=== PATIENT | female | born 1995 | race African-American/Black ===

== ENCOUNTER 2016-07-15 18:17 | Emergency (ER) | payer MEDICAID ==
[~2016-07-15] VITALS: Ht 170.2 cm; Wt 118.0 kg
[~2016-07-15 18:17] MED LIST: ERGO50000 PO; IBUP400T20 PO
[2016-07-15 18:29] VITALS: BP 139/71; PULSE 84; RESP 16; TEMP 99.3; O2SAT 100
[2016-07-15] MEDS ORDERED: SODIUM CHLOR 0.9% 1000 ML INJ 1,000 ML IV SCH (19:12)
[2016-07-15] MEDS ORDERED: KETOROLAC TROMETHAMINE 30 MG/ML (IVP) VIAL IVP ONE (19:15)
[2016-07-15] MEDS ORDERED: ALUMINUM/MAGNESIUM/SIMETH 30 ML CUP PO ONE (19:15)
[2016-07-15] MEDS ORDERED: SODIUM CHLORIDE 0.9% FLUSH 5 ML FLUSH IVF PRN (19:15)
[2016-07-15] MEDS ORDERED: LIDOCAINE VISCOUS 2% SOLN 15 ML UDC PO ONE (19:15)
[2016-07-15] MEDS ORDERED: ZOFR4TAB3 SL (19:45)
[2016-07-15] MEDS ORDERED: LOMO2.5T PO (19:45)
[2016-07-15] MEDS ORDERED: DICY10 PO (19:45)
--- NOTE | 2016-07-15 19:46 | PD ---
HPI Chief Complaint: GI Complaint Time Seen by Provider: 19:12 Travel History International Travel<30 days: No Contact w/Intl Traveler<30days: No Traveled to known affect area: No History of Present Illness HPI 21-year-old female arrives here with a complaint of abdominal pain for at least 1 week as well as diarrhea, nonbloody. Oral intake of any kind tends to cause diarrhea to worsen. The abdominal pain is generalized and mild. She denies fever. She feels nauseated at times especially after eating. She has had no vomiting. She she has no /gynecologic complaint. She has tried over-the- counter medication which has not helped. PFSH Past Medical History Medical History: Denies Significant Hx Diminished Hearing: No Immunizations Current: Yes Tetanus Vaccination: Unknown Influenza Vaccination: No ?: Not LMP: 06/17/2016 Past Surgical History Surgical History: No Previous Surgery Social History Alcohol Use: Yes (OCC) Tobacco Use: Yes (CIGARS) Substance Use: No Allergies-Medications (Allergen,Severity, Reaction): Coded Allergies: No Known Allergies (Unverified , 07/15/16) Reported Meds & Prescriptions Reported Meds & Active Scripts Active Bentyl (Dicyclomine HCl) 10 Mg Cap 10 Mg PO TID PRN Zofran Odt (Ondansetron Odt) 4 Mg Tab 4 Mg SL Q8HR PRN Lomotil (Diphenoxylate-Atropine) 2.5-0.025 Mg Tab 1 Tab PO Q6H PRN Review of Systems Except as stated in HPI: all other systems reviewed are Neg General / Constitutional: No: Fever, Chills Gastrointestinal: Positive: Nausea, Diarrhea, Abdominal Pain, Changes in Bowel Habits, No: Vomiting, Hematochezia, Loss of Appetite Physical Exam Narrative GENERAL: Pleasant 21-year-old female no acute distress SKIN: Warm and dry. HEAD: Atraumatic. Normocephalic. EYES: Pupils equal and round. No scleral icterus. No injection or drainage. ENT: No nasal bleeding or discharge. Mucous membranes pink and moist. NECK: Trachea midline. No JVD. CARDIOVASCULAR: Regular rate and rhythm. No murmur appreciated. RESPIRATORY: No accessory muscle use. Clear to auscultation. Breath sounds equal bilaterally. GASTROINTESTINAL: Soft. Mild tenderness about the umbilicus. MUSCULOSKELETAL: No obvious deformities. No clubbing. No cyanosis. No edema. NEUROLOGICAL: Awake and alert. No obvious cranial nerve deficits. Motor grossly within normal limits. Normal speech. PSYCHIATRIC: Appropriate mood and affect; insight and judgment normal. Data Data Last Documented VS Vital Signs Date Time Temp Pulse Resp B/P Pulse Ox O2 Delivery O2 Flow Rate FiO2 07/15/16 18:29 99.3 84 16 139/71 100 VS reviewed Orders Complete Blood Count With Diff (07/15/16 19:12) Comprehensive Metabolic Panel (07/15/16 19:12) Lipase (07/15/16 19:12) Urinalysis - C+S If Indicated (07/15/16 19:12) Iv Access Insert/Monitor (07/15/16 19:12) Ecg Monitoring (07/15/16 19:12) Oximetry (07/15/16 19:12) Sodium Chlor 0.9% 1000 Ml Inj (Ns 1000 M (07/15/16 19:12) Sodium Chloride 0.9% Flush (Ns Flush) (07/15/16 19:15) Ketorolac Inj (Toradol Inj) (07/15/16 19:15) Al-Mag Hy-Si 40-40-4 Mg/Ml Liq (Mag-Al P (07/15/16 19:15) Lidocaine 2% Viscous (Xylocaine 2% Visco (07/15/16 19:15) Ed Urine Pregnancytest Poc (07/15/16 19:12) Labs Laboratory Tests Test 07/15/16 19:40 White Blood Count 7.5 TH/MM3 Red Blood Count 4.36 MIL/MM3 Hemoglobin 10.8 GM/DL Hematocrit 33.7 % Mean Corpuscular Volume 77.3 FL Mean Corpuscular Hemoglobin 24.7 PG Mean Corpuscular Hemoglobin 32.0 % Concent Red Cell Distribution Width 18.5 % Platelet Count 265 TH/MM3 Mean Platelet Volume 10.4 FL Neutrophils (%) (Auto) 52.0 % Lymphocytes (%) (Auto) 39.5 % Monocytes (%) (Auto) 5.6 % Eosinophils (%) (Auto) 1.4 % Basophils (%) (Auto) 1.5 % Neutrophils # (Auto) 3.9 TH/MM3 Lymphocytes # (Auto) 3.0 TH/MM3 Monocytes # (Auto) 0.4 TH/MM3 Eosinophils # (Auto) 0.1 TH/MM3 Basophils # (Auto) 0.1 TH/MM3 CBC Comment AUTO DIFF Urine Color YELLOW Urine Turbidity CLEAR Urine pH 6.0 Urine Specific [place] 1.025 Urine Protein NEG mg/dL Urine Glucose (UA) NEG mg/dL Urine Ketones NEG mg/dL Urine Occult Blood NEG Urine Nitrite NEG Urine Bilirubin NEG Urine Leukocyte Esterase NEG Urine RBC 0-3 /hpf Urine WBC 0-2 /hpf Urine Squamous Epithelial 6-8 /hpf Cells Microscopic Urinalysis Comment CULT NOT INDICATED Sodium Level 140 MEQ/L Potassium Level 4.0 MEQ/L Chloride Level 106 MEQ/L Carbon Dioxide Level 24.7 MEQ/L Anion Gap 9 MEQ/L Blood Urea Nitrogen 13 MG/DL Creatinine 0.80 MG/DL Estimat Glomerular Filtration 110 ML/MIN Rate Random Glucose 80 MG/DL Calcium Level 8.8 MG/DL Total Bilirubin 0.1 MG/DL Aspartate Amino Transf 13 U/L (AST/SGOT) Alanine Aminotransferase 21 U/L (ALT/SGPT) Alkaline Phosphatase 51 U/L Total Protein 8.1 GM/DL Albumin 3.7 GM/DL Lipase 99 U/L [facility] Medical Decision Making Medical Screen Exam Complete: Yes Emergency Medical Condition: Yes Differential Diagnosis Constipation, Gastritis, Acute Cholecystitis, Biliary Colic, Pancreatitis, SINGH , Hepatitis, Bowel Obstruction, Cystitis, Mesenteric Ischemia, AAA, Appendicitis , Renal Stone/Hydronephrosis, GERD, perforated viscous Narrative Course CBC & BMP Diagram 07/15/16 19:40 LFTs are normal as is the lipase Urinalysis shows no UTI Urine is negative. The patient drink water without difficulty. She has remained quite comfortable throughout her ER stay, laughing hysterically with friends at about 8:10 PM or so. Marginal relief was conferred by the GI cocktail and Toradol. Etiology of pain is somewhat unclear however he has surgical abdomen or emergency abdominal pelvic disease is considered reasonably safely excluded given the chronicity of patient's complaints. Patient was advised of her mild microcytic anemia which she states is known to her. Return precautions discussed. Diagnosis Primary Impression: Diarrhea Qualified Code: R19.7 - Diarrhea, unspecified type Additional Impressions: Abdominal pain Qualified Code: R10.84 - Generalized abdominal pain Nausea Referrals: Primary Care Physician 2 days Additional Instructions: You have a choice when it comes to health care, and we are glad that you chose [facility]. Hopefully, we have met your expectations on today's visit. You are welcome to return to [facility] at any time, as we are committed to meeting the health care needs of our community. Med/Other Pt SpecificInfo: Prescription(s) given Scripts Dicyclomine (Bentyl)10 Mg Cap10 Mg PO TID PRN (Bowel Management) #10 CAP Ref 0 Prov:Robert Colón MD 07/15/16 Ondansetron Odt (Zofran Odt)4 Mg Tab4 Mg SL Q8HR PRN (Nausea/Vomiting) #10 TAB Ref 0 Prov:Robert Colón MD 07/15/16 Diphenoxylate-Atropine (Lomotil)2.5-0.025 Mg Tab1 Tab PO Q6H PRN (DIARRHEA) #6 TAB Ref 0 Prov:Robert Colón MD 07/15/16 Disposition: 01 DISCHARGE HOME Condition: Stable Robert Colón MD Jul 15, 2016 19:46
[2016-07-15 19:52] LABS: AUTOMATED NEUTROPHIL # 3.9 TH/MM3 (1.8-7.7); BASOPHIL # 0.1 TH/MM3 (0-0.2); BASOPHIL % 1.5 % (0.0-2.0); EOSINOPHIL # 0.1 TH/MM3 (0-0.4); EOSINOPHIL % 1.4 % (0.0-4.0); HEMATOCRIT 33.7 % (35.0-46.0); LYMPH % 39.5 % (9.0-44.0); MEAN CELL VOLUME 77.3 FL (80.0-100.0); MEAN CORPUSCULAR HEMOGLOBIN 24.7 PG (27.0-34.0); MONO % 5.6 % (0.0-8.0); PLATELET COUNT 265 TH/MM3 (150-450); RED BLOOD COUNT 4.36 MIL/MM3 (4.00-5.30); RED CELL DISTRIBUTION WIDTH 18.5 % (11.6-17.2); WHITE BLOOD COUNT 7.5 TH/MM3 (4.0-11.0)
[2016-07-15 19:53] LABS: BLOOD, URINE NEG (NEG); GLUCOSE,URINE NEG (NEG); KETONE, URINE NEG (NEG); NITRITE,URINE NEG (NEG)
[2016-07-15 19:58] LABS: CHLORIDE 106 MEQ/L (98-107); SODIUM (NA) 140 MEQ/L (136-145)
[2016-07-15 19:59] LABS: HEMO FLAGS AUTO DIFF
[2016-07-15 20:02] LABS: ANION GAP 9 MEQ/L (5-15); BICARBONATE 24.7 MEQ/L (21.0-32.0); BLOOD UREA NITROGEN 13 MG/DL (7-18)
[2016-07-15 20:05] LABS: ALT (GPT) 21 U/L (10-53); AST (GOT) 13 U/L (15-37); COMMENT (UR) CULT NOT INDICATED; CULTURE IF INDICATED CULT NOT INDICATED; GLOMERULAR FILTRATION RATE 110 ML/MIN (>89); RBC, URINE 0-3 /hpf (0-3); URINE COLOR YELLOW (YELLW/STRAW); WBC, URINE 0-2 /hpf (0-5)
[2016-07-15 20:06] LABS: TOTAL BILIRUBIN ADULT 0.1 MG/DL (0.2-1.0)
[2016-07-15 20:08] LABS: ALKALINE PHOSPHATASE 51 U/L (45-117)
[2016-07-15 20:28] LABS: OVALOCYTES 1+ (NORMAL); PLATELET ESTIMATE SMEAR NORMAL (NORMAL); PLATELET MORPHOLOGY NORMAL (NORMAL); SCAN/DIFF AUTO DIFF CONFIRMED
[2016-07-15 20:58] VITALS: BP 152/76
== END 2016-07-15 21:02 | disposition home or self-care (01) ==
LOC: PHED 18:17
DX: R19.7 Diarrhea, unspecified (principal); R10.84 Generalized abdominal pain; R11.0 Nausea
CPT/HCPCS: 80053; 81001; 83690; 84703; 85025; 96361; 96374; 99284; J1885; J7030